=== PATIENT | male | born 1940 | race Caucasian/White ===

== ENCOUNTER 2019-01-12 16:48 | Inpatient (IN) | payer SELFPAY ==
[~2019-01-12] VITALS: Ht 177.8 cm; Wt 90.7 kg
[2019-01-12 17:49] LABS: BASOPHILS ABSOLUTE AUTO 0.05 K/mm3 (0.00-0.23); BASOPHILS PERCENT AUTO 1 % (0-2); EOSINOPHILS ABSOLUTE AUTO 0.06 K/mm3 (0.00-0.68); EOSINOPHILS PERCENT AUTO 1 % (0-6); Hematocrit 42.4 % (37.0-53.0); Hemoglobin 13.9 g/dL (13.5-17.5); IMMATURE GRAN ABSOLUTE AUTO 0.04 K/mm3 (0.00-0.10); IMMATURE GRAN PERCENT AUTO 0 % (0-1); LYMPHOCYTES ABSOLUTE AUTO 1.75 K/mm3 (0.84-5.20); LYMPHOCYTES PERCENT AUTO 19 % (21-46); MONOCYTES ABSOLUTE AUTO 0.93 K/mm3 (0.16-1.47); MONOCYTES PERCENT AUTO 10 % (4-13); Mean Corpuscular HGB 32.4 pg (26.0-34.0); Mean Corpuscular HGB Conc 32.8 g/dL (31.5-36.5); Mean Corpuscular Volume 99 fL (80-100); Mean Platelet Volume 10.8 fL (9.1-12.4); NEUTROPHILS ABSOLUTE AUTO 6.63 K/mm3 (1.96-9.15); NEUTROPHILS PERCENT AUTO 70 % (41-73); Platelet Count 224 K/mm3 (150-400); RDW Coefficient Variation 12.2 % (11.7-14.2); RDW Standard Deviation 44.2 fL (35.1-46.3); Red Blood Cell Count 4.29 M/mm3 (4.30-5.90); White Blood Cell Count 9.46 K/mm3 (4.00-11.30)
[2019-01-12 18:14] LABS: Albumin, Blood 4.2 g/dL (3.4-5.0); Albumin/Globulin Ratio 1.4 (0.8-1.8); Bilirubin, Total 0.8 mg/dL (0.1-1.0); Bun/Creatinine Ratio 19.4 (12.0-20.0); Calcium, Blood 9.2 mg/dL (8.5-10.1); Creatinine, Blood 3.35 mg/dL (0.60-1.20); Globulin, Blood 3.1 g/dL (2.2-4.0); Potassium, Blood 3.2 mmol/L (3.5-5.5); Total Protein, Blood 7.3 g/dL (6.4-8.2)
[2019-01-12] MEDS ORDERED: [UNRECOGNIZED DRUG - CODE] PO (19:39)
[2019-01-12 20:30] LABS: Magnesium, Blood 1.9 mg/dL (1.6-2.4)
[2019-01-12 20:31] LABS: Source, Urine Clean Catch
[2019-01-12 20:36] LABS: Appearance, Urine Clear (Clear); Bilirubin, Urine Neg (Neg); Blood, Urine 1+ (Neg); Color, Urine Yellow (P-Yellow); Glucose Qualitative, Urine Neg (Neg); Ketones, Urine Neg (Neg); Leukocyte Esterase, Urine 2+ (Neg); Nitrite, Urine Neg (Neg); Protein, Urine 1+ (Neg); Specific Gravity, Urine 1.025 (1.003-1.022); Urobilinogen, Urine NORM (Normal)
[2019-01-12 20:49] LABS: Amorphous Light (0-Heavy); Bacteria Few /hpf; Red Blood Cells, Urine Rare /hpf (0-2); Squamous Epithelial Cells Few /hpf (Few)
--- NOTE | 2019-01-13 04:30 | NUR ---
PT WOKE UP THIS AM, PULLED OUT IV, AND DEMANDED TO GO HOME. PT REPORTS THERE IS "MACHINERY IN THE HALLWAY, NURSES RUNNING AROUND, NOISES OUT THERE" AND THAT THE HOSPITAL IS "UP TO NO GOOD". PT IS ALERT AND ORIENTED ENOUGH TO MAKE OWN DECISIONS, AWARE OF LOCATION, DATE/TIME, REASON FOR ADMISSION, AND RISKS OF LEAVING AMA. PT STATES HE WILL CALL A TAXI AND ALREADY HAS A HOTEL RESERVED (PT HAS BEEN STAYING AT [facility] 6 D/T POWER OUTAGE). PLACED CALL TO DR PENNINGTON WHO GAVE OKAY FOR PT TO LEAVE AMA LONG HE IS AWARE OF RISKS/BENEFITS AND ABLE TO SIGN PAPERWORK. PT AWARE AND ABLE TO DO SO. PT IS STABLE AND HAS STEADY GAIT UPON EXITING THE HOSPITAL, PERSONAL BELONGINGS TAKEN WITH PT.
== END 2019-01-13 04:20 | disposition left against medical advice (07) | DRG 684 ==
LOC: ER 16:48 → MEDS 18:34
PROVIDERS: Emergency Medicine; Nurse Practitioner Acute Care; ADMIT Internal Medicine
DX: N17.9 Acute kidney failure, unspecified (principal); R55 Syncope and collapse; I10 Essential (primary) hypertension; Z66 Do not resuscitate; E87.6 Hypokalemia; E86.9 Volume depletion, unspecified; Z79.82 Long term (current) use of aspirin
CPT/HCPCS: 70450; 80053; 81001; 82550; 83735; 84100; 85025; 93005; 93010; 99285-25; J7030

== ENCOUNTER 2020-12-10 04:27 | Emergency (ER) | payer SELFPAY ==
[~2020-12-10] VITALS: Ht 175.3 cm; Wt 79.4 kg
[~2020-12-10 04:27] MED LIST: [UNRECOGNIZED DRUG - CODE] PO
[2020-12-10 04:56] LABS: BASOPHILS ABSOLUTE AUTO 0.04 K/mm3 (0.00-0.23); BASOPHILS PERCENT AUTO 1 % (0-2); EOSINOPHILS ABSOLUTE AUTO 0.11 K/mm3 (0.00-0.68); EOSINOPHILS PERCENT AUTO 1 % (0-6); Hemoglobin 13.6 g/dL (13.5-17.5); IMMATURE GRAN ABSOLUTE AUTO 0.06 K/mm3 (0.00-0.10); IMMATURE GRAN PERCENT AUTO 1 % (0-1); LYMPHOCYTES ABSOLUTE AUTO 1.04 K/mm3 (0.84-5.20); LYMPHOCYTES PERCENT AUTO 12 % (21-46); MONOCYTES ABSOLUTE AUTO 0.97 K/mm3 (0.16-1.47); MONOCYTES PERCENT AUTO 11 % (4-13); Mean Corpuscular HGB 31.9 pg (26.0-34.0); Mean Corpuscular HGB Conc 31.6 g/dL (31.5-36.5); Mean Corpuscular Volume 101 fL (80-100); NEUTROPHILS ABSOLUTE AUTO 6.45 K/mm3 (1.96-9.15); NEUTROPHILS PERCENT AUTO 74 % (41-73); Platelet Count 208 K/mm3 (150-400); RDW Coefficient Variation 13.1 % (11.7-14.2); RDW Standard Deviation 47.7 fL (35.1-46.3); Red Blood Cell Count 4.27 M/mm3 (4.30-5.90); White Blood Cell Count 8.67 K/mm3 (4.00-11.30)
[2020-12-10 05:03] LABS: Bun/Creatinine Ratio 22.7 (12.0-20.0); Calcium, Blood 9.5 mg/dL (8.5-10.1); Creatinine, Blood 1.41 mg/dL (0.60-1.20); Potassium, Blood 4.1 mmol/L (3.5-5.5)
[2020-12-10 05:10] LABS: International Normalized Ratio 1.07; Prothrombin Time Results 11.4 Sec (9.7-11.5)
[2020-12-10] MEDS ORDERED: CEPH500 PO (06:30)
== END 2020-12-10 08:15 | disposition home or self-care (01) ==
LOC: ER 04:27
PROVIDERS: Student in an Organized Health Care Education/Training Program
DX: S01.01XA Laceration without foreign body of scalp, initial encounter (principal); I10 Essential (primary) hypertension; W01.198A Fall on same level from slipping, tripping and stumbling with subsequent striking against other object, initial encounter
CPT/HCPCS: 12004; 70450; 72125; 80048; 85025; 85610; 99284-25; A9270

== ENCOUNTER 2020-12-12 14:11 | Inpatient (IN) | payer MEDICARE, SELFPAY ==
[~2020-12-12] VITALS: Ht 172.7 cm; Wt 92.8 kg
[~2020-12-12 14:11] MED LIST changes: +CEPH500 PO
[2020-12-12 14:38] LABS: BASOPHILS ABSOLUTE AUTO 0.03 K/mm3 (0.00-0.23); BASOPHILS PERCENT AUTO 0 % (0-2); EOSINOPHILS ABSOLUTE AUTO 0.03 K/mm3 (0.00-0.68); EOSINOPHILS PERCENT AUTO 0 % (0-6); Hematocrit 46.2 % (37.0-53.0); Hemoglobin 14.9 g/dL (13.5-17.5); IMMATURE GRAN ABSOLUTE AUTO 0.06 K/mm3 (0.00-0.10); IMMATURE GRAN PERCENT AUTO 1 % (0-1); LYMPHOCYTES ABSOLUTE AUTO 0.96 K/mm3 (0.84-5.20); LYMPHOCYTES PERCENT AUTO 7 % (21-46); MONOCYTES ABSOLUTE AUTO 1.33 K/mm3 (0.16-1.47); MONOCYTES PERCENT AUTO 10 % (4-13); Mean Corpuscular HGB Conc 32.3 g/dL (31.5-36.5); Mean Corpuscular Volume 99 fL (80-100); Mean Platelet Volume 9.9 fL (9.1-12.4); NEUTROPHILS ABSOLUTE AUTO 10.81 K/mm3 (1.96-9.15); NEUTROPHILS PERCENT AUTO 82 % (41-73); Platelet Count 214 K/mm3 (150-400); RDW Coefficient Variation 12.7 % (11.7-14.2); RDW Standard Deviation 46.5 fL (35.1-46.3); Red Blood Cell Count 4.65 M/mm3 (4.30-5.90); White Blood Cell Count 13.22 K/mm3 (4.00-11.30)
[2020-12-12 14:52] LABS: Alanine Aminotransfer (ALT/SGP 47 U/L (12-78); Albumin, Blood 3.6 g/dL (3.4-5.0); Albumin/Globulin Ratio 1.1 (0.8-1.8); Alk Phos 87 U/L (50-136); Anion Gap 8 mmol/L (6-16); Aspartate Aminotrans (AST/SGOT 121 U/L (12-37); Bilirubin, Total 1.1 mg/dL (0.1-1.0); Blood Urea Nitrogen 39 mg/dL (8-24); Bun/Creatinine Ratio 35.1 (12.0-20.0); CO2, Blood 24 mmol/L (21-32); Calcium, Blood 9.4 mg/dL (8.5-10.1); Chloride, Blood 109 mmol/L (98-108); Creatinine, Blood 1.11 mg/dL (0.60-1.20); Globulin, Blood 3.3 g/dL (2.2-4.0); Glomerular Filtration Rate >60 (60-); Glucose, Blood 97 mg/dL (70-99); Sodium, Blood 141 mmol/L (136-145); Total Protein, Blood 6.9 g/dL (6.4-8.2)
[2020-12-12 14:53] LABS: International Normalized Ratio 1.07; Prothrombin Time Results 11.4 Sec (9.7-11.5)
[2020-12-12 15:31] LABS: Source, Urine Catheter
[2020-12-12 15:39] LABS: Bilirubin, Urine Neg (Neg); Blood, Urine 4+ (Neg); Glucose Qualitative, Urine Neg (Neg); Ketones, Urine 3+ (Neg); Leukocyte Esterase, Urine Neg (Neg); Nitrite, Urine Neg (Neg); Protein, Urine 2+ (Neg); Urobilinogen, Urine 1+ (Normal)
[2020-12-12 15:54] LABS: U Amphetamine Screen Not Detected; U Barbituate Screen Not Detected; U Benzodiazapine Screen Not Detected; U Buprenorphine Screen Not Detected; U Cannabinoids Screen Not Detected; U Cocaine Screen Not Detected; U Methadone Screen Not Detected; U Methamphetamine Screen Not Detected; U Opiates Screen Not Detected; U Oxycodone Screen Not Detected; U Phencyclidine Screen Not Detected; U Propoxyphene Screen Not Detected
[2020-12-12 15:55] LABS: Appearance, Urine Hazy (Clear); Color, Urine Yellow (P-Yellow)
[2020-12-12 15:56] LABS: Amorphous Light (0-Heavy); Bacteria Not Seen /hpf; Mucus Mod (0-Heavy); Red Blood Cells, Urine Not Seen /hpf (0-2); Squamous Epithelial Cells Rare /hpf (Few)
[2020-12-12 16:36] LABS: Creatine Kinase MB 17.1 ng/mL (0.0-3.6); Creatine Kinase MB Index 0.7 (0.0-4.0)
[2020-12-12] MEDS ORDERED: CEPH500 PO (16:39)
--- NOTE | 2020-12-12 22:25 | NUR ---
ADMITTED 80 YR OLD MALE FROM THE ED WITH REPORTED HAVING BEEN FOUND DOWN FOR AT LEAST 2 DAYS BY FRIEND WHO HAD PT BROUGHT BACK TO HOSPITAL (HAD BEEN TREATED HERE 2 DAYS PRIOR - SEE ED REPORTS). REPORTED FROM ED PT SPEAKS CHILEAN, UNKNOWN IF HE SPOKE BURMESE. REPORTED PT HAD BEEN "HALLUCINATING" FOR SOME 2-3 WEEKS BY FRIEND IN THE ED. UPON ARRIVAL AT FLOOR. NOTE STITCHES ON FOREHEAD, SEE RESULTS OF HEAD CT - DEPRESSED LEFT FRONTAL FX. NOTE SEVERE GROIN RASH WITH DRAINAGE. NELSON DRAINING, BAG CHANGED OUT IT WAS LEAKING FROM THE BOTTOM. NS INFUSING AT 75 ML/HR. SPOKE TO PT, SPEAKS BURMESE, SLOWLY. ALERT AND ORIENTED. INCONT OF BM-SMEAR. CLEANED UP, BREANN CARE GIVEN. ORIENTED TO USE OF CALL LIGHT. NEURO CHECK - PUPILS DIFFERENT SIZE VUT BOTH ARE ROUND. [place] SLOW BUT EQUAL. DORSI AND PLANTAR FLEXIONS SLOW BUT SEEM EQUAL AT THIS TIME. CALL LIGHT IN REACH
--- NOTE | 2020-12-12 23:29 | NUR ---
[facility]CO PRO AND SARAH PRO (POA OF PT) CALLED FOR UPDATS RE PT. REQUESTED THAT MD CALL THEM WITH PLAN OF ACTION IN THE AM. VOICED PT HAD BEEN TALKING TO UNSEEN PEOPLE ON HIS COUCH AND OTHER THINGS THAT SEEMED LIKE HALLUCINATIONS OVER THE PAST 6 MONTHS OR SO. THEY SAID THEY SPOKE WITH THE ED RN WHO MENTIONED POSSIBLE UTI, NO NOTED (+) BACTERIA IN UA BUT WILL CONTINUE TO MONITOR. IVF OF NS INFUSING. BED ALARM ON DUE TO RECENT FALLS AT HOME. ANNELIESE PH # ON INFO BOARD IN ROOM. REQUEST THAT THEY BE CALLED FOR ANY CHANGES, THEY SAID THEY WERE UPSET THAT THEY WERENT NOTIFIED OF RECENT DISCHARGE OF PT AND FOUND HIM DOWN AT HIS HOME. WILL PASS THIS ON TO AM RN AND HAVE THEM ASK THE MD TO CALL POST ASSESSMENT. CALL LIGHT IN REACH
--- NOTE | 2020-12-13 03:15 | NUR ---
GOT OUT OF BED. ALARM WENT OFF. STATED "I HAVE TO GO TO THE BATHROOM" (BM, NELSON INTACT AND DRAINING). ASSISTED TO BEDSIDE COMMODE. PT TRIED TO PULL OUT IV, WHICH WAS REATTACHED. AFTER BM, ASSISTED BACK TO BED. NOTE ALL 4 EXTREMITITES WORKING, VERBAL RESPONSE APPROPRIATE TO QUESTIONS ASKED. CALL LIGHT IN REACH
--- NOTE | 2020-12-13 03:19 | NUR ---
SHIFT SUMMARY ADMITTED EARLIER IN SHIFT. WAS FOUND DOWN AT HOME, BROUGHT TO HOSPITAL, NEURO CHECKS DONE - PUPILS ROUND BUT ONE SLIGHTLY LARGER THAN THE OTHER - SEE DOCUMENTATION. GOT OUT OF BED A FEW MINUTES AGO AND ALL 4 EXT WORKING, BUT VERY UNSTEADY ON FEET. ASSISTED TO AND FROM COMMODE. RESTING QUIETLY AT THIS TIME IN BED. CALL LIGHT IN REACH. IVF OF NS INFUSING. RAILS UP X 2, BED ALARM ON
[2020-12-13 04:41] LABS: BASOPHILS ABSOLUTE AUTO 0.03 K/mm3 (0.00-0.23); BASOPHILS PERCENT AUTO 0 % (0-2); EOSINOPHILS ABSOLUTE AUTO 0.06 K/mm3 (0.00-0.68); EOSINOPHILS PERCENT AUTO 1 % (0-6); Hematocrit 40.1 % (37.0-53.0); Hemoglobin 12.9 g/dL (13.5-17.5); IMMATURE GRAN ABSOLUTE AUTO 0.05 K/mm3 (0.00-0.10); IMMATURE GRAN PERCENT AUTO 1 % (0-1); LYMPHOCYTES ABSOLUTE AUTO 0.69 K/mm3 (0.84-5.20); LYMPHOCYTES PERCENT AUTO 7 % (21-46); MONOCYTES ABSOLUTE AUTO 1.12 K/mm3 (0.16-1.47); MONOCYTES PERCENT AUTO 12 % (4-13); Mean Corpuscular HGB 32.4 pg (26.0-34.0); Mean Corpuscular HGB Conc 32.2 g/dL (31.5-36.5); Mean Corpuscular Volume 101 fL (80-100); Mean Platelet Volume 9.9 fL (9.1-12.4); NEUTROPHILS PERCENT AUTO 80 % (41-73); Platelet Count 194 K/mm3 (150-400); RDW Coefficient Variation 12.8 % (11.7-14.2); RDW Standard Deviation 47.2 fL (35.1-46.3); Red Blood Cell Count 3.98 M/mm3 (4.30-5.90); White Blood Cell Count 9.65 K/mm3 (4.00-11.30)
[2020-12-13 05:15] LABS: Anion Gap 7 mmol/L (6-16); Blood Urea Nitrogen 38 mg/dL (8-24); Bun/Creatinine Ratio 33.6 (12.0-20.0); CO2, Blood 24 mmol/L (21-32); Calcium, Blood 8.7 mg/dL (8.5-10.1); Chloride, Blood 113 mmol/L (98-108); Creatinine, Blood 1.13 mg/dL (0.60-1.20); Glomerular Filtration Rate >60 (60-); Glucose, Blood 98 mg/dL (70-99); Potassium, Blood 3.6 mmol/L (3.5-5.5); Sodium, Blood 144 mmol/L (136-145)
[2020-12-13 05:21] LABS: CPK Creatine Kinase 1412 U/L (39-308)
--- NOTE | 2020-12-13 18:27 | NUR ---
Shift Summary A/O to self. At start of shift, patient was sleeping. Joel present, draining to gravity with frantz clear urine. Received V.O. from Dr. Carter to d/c wisam. Order updated and joel remove at approximately 1830. Physical therapy evaluated patient, reported patient extremely unsteady on feet. Stitches to forehead intact without signs of infection. 2p TQ2. POA (Henry) visited and reports patient has been having visual and auditory hallucinations for approx. 6 months now. No hallucinations today. Otherwise, pleasant and cooperative with care. Able to follow some instructions. Verbal responses to questions asked are sometimes inappropriate. No other changes. Bed in lowest position. Call light near, bed alarm on. Continuous NS @ 100. WCTM
--- NOTE | 2020-12-13 19:16 | NUR ---
AWAKENS WHEN NURSE ENTERS ROOM FOR ROUNDING. IVF OF NS INFUSING AT 100 ML/HR PER MD ORDERS. INSTRUCTED TO USE CALL LIGHT INSTEAD OF ATTEMPTING TO GET OUT OF BED BY SSELF. CALL LIGHT IN REACH. PT AGREES TO DO SO. HOB ELEVATED FOR COMFORT. NO NOTED ACUTE DISTRESS AT THIS TIME.
--- NOTE | 2020-12-14 02:59 | NUR ---
SHIFT SUMMARY HAS BEEN RESTING QUIETLY WITH EFW INTERRUPTIONS SINCE HS. IVF OF NS CONTINUES TO INFUSE AT 100 ML/HR PER MD ORDERS. CHANGED FOR INCONT OF URINE EARLIER. ABLE TO REPOSITION SELF. HOB ELEVATED FOR COMFORT. CALL LIGHT IN REACH. OINTMENT WAS APPLIED TO GROIN RASH EARLIER, REMAINS RED. RAILS UP X 2. NO NOTED ATTEMPTS TO GET OUT OF BED WITHOUT STAFF PRESENT. WILL CONT TO MONITOR, BED ALARM REMAINS ON
--- NOTE | 2020-12-14 14:30 | NUR ---
permission to provide care student nurse lorenzo mcnally recieved permission to provide care on 12/14/20
--- NOTE | 2020-12-14 20:41 | NUR ---
AWAKENS AT ROUNDING. HOB REMAINS ELEVATED FOR BREATHING COMFORT. NO C/O PAIN. VERBAL RESPONSE SLOW, MIXED WITH [facility]. PT SMILES. CALL LIGHT IN REACH
--- NOTE | 2020-12-15 03:24 | NUR ---
SHIFT SUMMARY AWAKE AT INTERVALS TO CALL FOR ASSIST TO AMBULATE TO BATHROOM TO VOID WITH THE HELP OF A WALKER. INCONT OF URINE X 1, OTHERWISE VOIDED IN THE TOILET. USING CALL LIGHT APPROPRIATELY. SMILING WHEN TALKING TO STAFF, VERBALIZATIONS CONTINUE TO BE SOMEWHAT GARBLED, BUT SEEMS LESS CONFUSED IN HIS ACTIONS THAN NOTED 24 HR AGO. CALL LIGHT IN REACH. HOB REMAINS ELEVATED FOR COMFORT.
--- NOTE | 2020-12-15 18:57 | NUR ---
PT TRANSFERED VIA W/C FROM 302 TO SCU RM 344, REPORT TO NEW GRAD FROM PREVIOUS RN PRIOR TO TRANSFER. PT AGITATED AND NOT FOLLOWING DIRECTIONS, WOULD NOT SIT DOWN IN BED. PT ASSISTED TO BED BY 4 STAFF, WENDI VEST PLACED. DR. GROVE NOTIFIED AND RECIEVED ORDER FOR WENDI VEST AND ATIVAN 0.5-1MG IV Q4 PRN.
--- NOTE | 2020-12-15 19:00 | NUR ---
ASSUMED CARE RECEIVED REPORT FROM PIOTR CERVANTES. PT RESTING IN BED COMFORTABLY, NO S/S ACUTE DISTRESS NOTED, RESPS E/U. NO ACUTE NEEDS ASSESSED AT THIS TIME. CALL LIGHT, POSSESSIONS IN REACH, BED IN LOW POSITION WITH ALARMS ON. WENDI VEST IN PLACE. CONTINUE TO MONITOR.
--- NOTE | 2020-12-16 06:10 | NUR ---
SHIFT SUMMARY PT ASLEEP, IN NO ACUTE DISTRESS. PT ANXIOUS EARLY IN EVENING, MEDICATED PER EMAR, PT APPEARED TO SLEEP T/O NIGHT. NO ACUTE CHANGES IN CONDITION NOTED T/O SHIFT. VS REVIEWED, PT HYPERTENSIVE, MEDICATED PER EMAR WITH EFFECTIVE RESULTS; BP NOW STABLE; OTHER VS WNL. WENDI VEST AND SIDERAILS X4 REMAIN IN PLACE D/T HIGH RISK FOR FALLS. NO ACUTE NEEDS ASSESSED AT THIS TIME, PT APPEARS COMFORTABLE. CALL LIGHT, POSSESSIONS IN REACH, BED IN LOW POSITION WITH ALARMS ON. CONTINUE TO MONITOR, REPORT OFF TO DAY RN.
--- NOTE | 2020-12-16 16:19 | NUR ---
Student Nurse was given permission by RN to assist with Pt. care.
--- NOTE | 2020-12-16 17:02 | NUR ---
PATIENT A/O TO SELF AND FAMILY ONLY. ABLE TO MAKE NEEDS KNOWN AND USED CALL LIGHT APPROPRIATELY FOR ASSISTANCE TODAY. RESTRAINTS D/C'D AT 1000 THIS AM. VSS, ON RA. AMBULATED IN ROOM AND HALLS TODAY WITH FWW AND SBA. TYLENOL GIVEN X1 FOR SHOULDER PAIN. SUTURES TO FOREHEAD, LACERATION DRY AND OPEN TO AIR. AWAITING PLACEMENT.
--- NOTE | 2020-12-17 04:29 | NUR ---
SHIFT SUMMARY PT HAD AN UNEVENTFUL NIGHT. SLEPT THROUGH MUCH OF THE NIGHT. PLEASANTLY CONFUSED. CONTINUES TO BE IMPULSIVE. HAS NOT USED CALL LIGHT APPROPRIATELY THIS EVENING. BED ALARM ON FOR SAFETY. PT MOSTLY INCONTINENT, GETTING UP TO VOID BUT HAVING ALREADY GONE IN BRIEF. SKIN IN BREANN AREA IS RED AND EXCORIATED. BARRIER CREAM APPLIED TO BREANN AREA AND NYSTATIN CREAM TO PANNUS. LACERATION WITH SUTURES TO FOREHEAD NOTED WITH BRUISING TO FACE FROM FALL AT HOME. PT HAS [place]EN[place] ACCENT, DIFFICULT TO UNDERSTAND AT TIMES. UNCLEAR ALSO HOW MUCH PT IS UNDERSTANDING WHEN SPEAKING TO HIM. PT REMAINED OUT OF RESTRAINTS THROUGHOUT THE NIGHT. NO COMPLAINTS OF PAIN. VITAL SIGNS STABLE. NO ACUTE CHANGES. WILL CONTINUE TO MONITOR.
--- NOTE | 2020-12-17 17:03 | NUR ---
DNR BAND PLACED TO L WRIST. ORDER VERIFIED BY PIOTR RAMOS
--- NOTE | 2020-12-17 18:01 | NUR ---
PATIENT A/O TO SELF AND FAMILY THIS SHIFT. VERY PLEASANT AND COOPERATIVE WITH CARE. UP WITH FWW AND SBA, FALL PRECAUTIONS IN PLACE. SUTURES INTACT TO FOREHEAD AND WOUND IS OPEN TO AIR. TOLERATING CARDIAC DIET, ABLE TO FEED HIMSLEF. CONTINENT/INCONTINENT OF URINE. NO IV SITE. POA MARCO HERE TODAY AND A POLST FORM WAS COMPLETED. CODE STATUS CHANGED TO DNR. MARCO WILL BE BY IN THE MORNING TO SALES LEAD GENERATOR SIGNED POLST FORM TO GIVE TO THE [facility] PATIENT WILL D/C SOON MONDAY. BENADRYL ORDERED DUE TO RASH ON HIS BACK, BUT PATIENT DID NOT WANT TO TAKE ANY TODAY. NO NEW CONCERNS.
--- NOTE | 2020-12-18 04:28 | NUR ---
SHIFT SUMMARY PT REMAINS PLEASANTLY CONFUSED. PT WILL USE CALL LIGHT SOMETIMES AND OTHER TIMES WILL NOT. BED ALARM ON FOR SAFETY. PT INCONTINENT/CONTINENT. GETS UP TO VOID BUT HAS USUALLY ALREADY GONE IN HIS BRIEF. THICK [place] ACCENT MAKES IT DIFFICULT TO UNDERSTAND PT AT TIMES. LACERATION W/ SUTURES TO FOREHEAD OPEN TO AIR. SMALL ABRASIONS SCATTERED THROUGHOUT BODY. BRUISING TO FACE. PT HAD FALL AT HOME. VITAL SIGNS STABLE. NO ACUTE CHANGES THIS EVENING. WILL CONTINUE TO MONITOR.
--- NOTE | 2020-12-18 17:29 | NUR ---
SHIFT SUMMARY PATIENT DENIES PAIN, NAUSEA, AND SHORTNESS OF BREATH. PATIENT UP SBA TO BATHROOM. SOMETIMES CALLS AND SOMETIMES SET OFF CHAIR ALARM. PLEASANT AND COOPERATIVE WITH CARE. EATING AND DRINKING WELL. PENDING DISCHARGE TO THE [facility].
--- NOTE | 2020-12-19 04:07 | NUR ---
SHIFT SUMMARY NO ACUTE CHANGES THIS SHIFT. PT IS CONFUSED BUT PLEASANT, GETS OUT OF BED WHEN NEEDING TO USE RESTROOM WITHOUT CALLING, BUT IS REDIRECTABLE. PT IS AUGUSTINE AND HAS THICK DIVEHI ACCENT. PT HAS COMPLAINED OF WRIST PAIN THIS SHIFT, WHEN THIS RN GETS PAIN MEDICATION FOR PT, PT IS SLEEPING WITH SNORING HEARD BY THE TIME THIS RN IS BACK IN PT ROOM. PT IS LAYING IN BED WITH EYES CLOSED, EVEN AND UNLABORED RESPIRATIONS. BED IN LOWERED POSITION WITH ALARM IN PLACE. CALL LIGHT AND PERSONAL ITEMS WITH IN REACH. NO APPARENT NEEDS OR DISTRESS AT THIS TIME, WILL CONTINUE TO MONITOR UNTIL REPORT GIVEN TO DAY RN.
--- NOTE | 2020-12-19 16:45 | NUR ---
NO ACUTE CHANGES TO PT. HE HAS RESTED OR BEEN UP IN CHAIR THIS SHIFT WITH NO COMPLAINTS OR ISSUES. HE IS CONFUSED BUT REDIRECTABLE AND FRIENDLY WITH STAFF. CALL LIGHT WITHIN REACH AND CHAIR ALARM ON.
--- NOTE | 2020-12-20 04:07 | NUR ---
SHIFT SUMMARY NO ACUTE CHANGES THIS SHIFT. PT SLEPT WELL T/O NIGHT WITH ONLY A FEW INSTANCES WHERE PT TRIED GETTING OUT OF BED TO USE RESTROOM WITHOUT CALLING FOR HELP FIRST. OTHERWISE NO OTHER COMPLAINTS/PROBLEMS. PT IS LAYING IN BED WITH EYES CLOSED, EVEN AND UNLABORED RESPIRATIONS. BED IN LOWERED POSITION WITH ALARM IN PLACE. CALL LIGHT AND PERSONAL ITEMS WITH IN REACH. NO APPARENT NEEDS OR DISTRESS AT THIS TIME, WILL CONTINUE TO MONITOR UNTIL REPORT GIVEN TO DAY RN.
--- NOTE | 2020-12-20 15:53 | NUR ---
PT REQUESTED TO WALK OUT OF ROOM. WITH USE OF GAIT BELT AND WALKER PT WAS ABLE TO WALK ONE ASSIST DOWN TO WINDOW AND BACK . PT REMAINS CONFUSED BUT IS REDIRECTABLE. HE IS PLEASANT AND COOPERATIVE WITH CARES. NO ACUTE CHANGES TO PT . CALL LIGHT WITHIN REACH.
--- NOTE | 2020-12-21 04:34 | NUR ---
SHIFT SUMMARY ALERT, ABLE TO MAKE NEEDS KNOWN. FOLLOWING DIRECTIONS. COOPERATIVE WITH CARE. NO C/O PAIN/DISCOMFORT. APPEARED TO REST MUCH OF THE NIGHT. 1P ASSIST TO BATHROOM. NO ACUTE CHANGES NOTED OVERNIGHT. AWAITING PLACEMENT. BED IN LOWEST POSITION; ALARM ON. CONTINUE WITH CURRENT PLAN OF CARE. REPORT TO ONCOMING RN.
[2020-12-21] MEDS ORDERED: Prinivil10 MG PO (15:47)
[2020-12-21] MEDS ORDERED: AMLO10 PO (15:47)
[2020-12-21] MEDS ORDERED: VITAMIN D5000 UNIT PO (15:48)
--- NOTE | 2020-12-21 16:13 | NUR ---
PT DISCHARGED FROM THE UNIT. RIDE TO TAKE TO THE [facility]. LEFT UNIT VIA WHEELCHAIR.
== END 2020-12-21 15:53 | disposition home or self-care (01) | DRG 557 ==
LOC: ER 14:11 → MEDS 14:12 → ERHOLD 14:12 → MEDS 20:57
PROVIDERS: Emergency Medicine; ADMIT Family Medicine
DX: M62.82 Rhabdomyolysis (principal); G92 Toxic encephalopathy; F03.90 Unspecified dementia, unspecified severity, without behavioral disturbance, psychotic disturbance, mood disturbance, and anxiety; I10 Essential (primary) hypertension; S00.03XA Contusion of scalp, initial encounter; W19.XXXA Unspecified fall, initial encounter; Z20.822 Contact with and (suspected) exposure to COVID-19; Z66 Do not resuscitate; S00.11XA Contusion of right eyelid and periocular area, initial encounter; Z85.038 Personal history of other malignant neoplasm of large intestine; L27.0 Generalized skin eruption due to drugs and medicaments taken internally; T50.2X5A Adverse effect of carbonic-anhydrase inhibitors, benzothiadiazides and other diuretics, initial encounter
CPT/HCPCS: 36415; 70450; 71045; 72125; 80048; 80053; 81001; 82140; 82550; 82553; 85025; 85610; 85730; 93005; 93010; 96360; 96361; 96374; 97110; 97116; 97129; 97130; 97162; 97166; 97530; 97535; 99285-25; A9270; G0378; G0480; J0360; J2060; J7030

== ENCOUNTER → 2021-01-26 | Outpatient (CLI) | payer SELFPAY ==
[~2021-01-26] MED LIST changes: +AMLO10 PO; +Prinivil10 MG PO; +VITAMIN D5000 UNIT PO
[2021-01-26 12:30] LABS: Source, Urine Clean Catch
[2021-01-26 13:24] LABS: Appearance, Urine Hazy (Clear); Bilirubin, Urine Neg (Neg); Blood, Urine 2+ (Neg); Color, Urine Yellow (P-Yellow); Glucose Qualitative, Urine Neg (Neg); Ketones, Urine Neg (Neg); Leukocyte Esterase, Urine 3+ (Neg); Nitrite, Urine Neg (Neg); Protein, Urine Neg (Neg); Urobilinogen, Urine NORM (Normal); pH, Urine 6.5 (5.0-8.0)
[2021-01-26 13:41] LABS: Bacteria Many /hpf; Squamous Epithelial Cells Few /hpf (Few); White Blood Cells, Urine TNTC /hpf (0-5)
== END ==
LOC: PLD 10:00 → LAB SHORT 10:00
PROVIDERS: Nurse Practitioner Family
DX: F03.90 Unspecified dementia, unspecified severity, without behavioral disturbance, psychotic disturbance, mood disturbance, and anxiety (principal)
CPT/HCPCS: 81001; 87077; 87086; 87186

== ENCOUNTER → 2021-09-10 | Outpatient (CLI) | payer SELFPAY ==
[2021-09-10 15:58] LABS: Appearance, Urine Cloudy (Clear); Bilirubin, Urine Neg (Neg); Blood, Urine 4+ (Neg); Color, Urine Yellow (P-Yellow); Glucose Qualitative, Urine Neg (Neg); Ketones, Urine Neg (Neg); Leukocyte Esterase, Urine 3+ (Neg); Nitrite, Urine Neg (Neg); Protein, Urine 4+ (Neg); Urobilinogen, Urine NORM (Normal)
[2021-09-10 16:18] LABS: Bacteria Many /hpf; Squamous Epithelial Cells Rare /hpf (Few); Transitional Epithelial Cells Rare /hpf (0-Rare); White Blood Cells, Urine TNTC /hpf (0-5)
== END ==
LOC: LAB SHORT 12:45
PROVIDERS: Nurse Practitioner Family
DX: N39.0 Urinary tract infection, site not specified (principal)
CPT/HCPCS: 81001; 87086

== ENCOUNTER → 2021-10-25 | Outpatient (CLI) | payer OTHER ==
[2021-10-26 13:57] LABS: Source, Urine Clean Catch
[2021-10-26 15:42] LABS: Appearance, Urine Clear (Clear); Bilirubin, Urine Neg (Neg); Blood, Urine 1+ (Neg); Color, Urine Yellow (P-Yellow); Glucose Qualitative, Urine Neg (Neg); Ketones, Urine Neg (Neg); Leukocyte Esterase, Urine 2+ (Neg); Nitrite, Urine Neg (Neg); Protein, Urine 1+ (Neg); Urobilinogen, Urine NORM (Normal)
[2021-10-26 15:52] LABS: Bacteria Mod /hpf; Red Blood Cells, Urine 0-2 /hpf (0-2); Squamous Epithelial Cells Few /hpf (Few)
== END | disposition home or self-care (01) ==
LOC: LAB SHORT 20:00
PROVIDERS: Nurse Practitioner Family
DX: N39.0 Urinary tract infection, site not specified (principal)
CPT/HCPCS: 81001; 87086

== ENCOUNTER → 2021-10-29 | Outpatient (CLI) | payer OTHER ==
[2021-10-30 15:19] LABS: Source, Urine Clean Catch
[2021-10-30 15:33] LABS: Appearance, Urine Clear (Clear); Bilirubin, Urine Neg (Neg); Blood, Urine 1+ (Neg); Color, Urine Yellow (P-Yellow); Glucose Qualitative, Urine Neg (Neg); Ketones, Urine Neg (Neg); Leukocyte Esterase, Urine Neg (Neg); Nitrite, Urine Neg (Neg); Protein, Urine 1+ (Neg); Urobilinogen, Urine NORM (Normal)
[2021-10-30 16:01] LABS: Amorphous Light (0-Heavy); Bacteria Rare /hpf; Squamous Epithelial Cells Rare /hpf (Few); White Blood Cells, Urine 0-2 /hpf (0-5)
== END | disposition home or self-care (01) ==
LOC: LAB SHORT 15:18 → LAB 15:18
PROVIDERS: Nurse Practitioner Family
DX: N39.0 Urinary tract infection, site not specified (principal)
CPT/HCPCS: 81001

== ENCOUNTER 2021-11-23 13:18 | Emergency (ER) | payer OTHER ==
[~2021-11-23] VITALS: Ht 177.8 cm; Wt 90.7 kg
[2021-11-23 14:51] LABS: BASOPHILS ABSOLUTE AUTO 0.04 K/mm3 (0.00-0.23); BASOPHILS PERCENT AUTO 1 % (0-2); EOSINOPHILS ABSOLUTE AUTO 0.18 K/mm3 (0.00-0.68); EOSINOPHILS PERCENT AUTO 2 % (0-6); Hematocrit 36.8 % (37.0-53.0); Hemoglobin 12.4 g/dL (13.5-17.5); IMMATURE GRAN ABSOLUTE AUTO 0.05 K/mm3 (0.00-0.10); IMMATURE GRAN PERCENT AUTO 1 % (0-1); LYMPHOCYTES ABSOLUTE AUTO 0.99 K/mm3 (0.84-5.20); LYMPHOCYTES PERCENT AUTO 12 % (21-46); MONOCYTES ABSOLUTE AUTO 0.87 K/mm3 (0.16-1.47); MONOCYTES PERCENT AUTO 11 % (4-13); Mean Corpuscular HGB 31.3 pg (26.0-34.0); Mean Corpuscular HGB Conc 33.7 g/dL (31.5-36.5); Mean Corpuscular Volume 93 fL (80-100); Mean Platelet Volume 10.1 fL (9.1-12.4); NEUTROPHILS ABSOLUTE AUTO 5.96 K/mm3 (1.96-9.15); NEUTROPHILS PERCENT AUTO 74 % (41-73); Platelet Count 199 K/mm3 (150-400); RDW Coefficient Variation 12.1 % (11.7-14.2); RDW Standard Deviation 41.8 fL (35.1-46.3); Red Blood Cell Count 3.96 M/mm3 (4.30-5.90); White Blood Cell Count 8.09 K/mm3 (4.00-11.30)
[2021-11-23 15:10] LABS: Albumin, Blood 3.6 g/dL (3.4-5.0); Albumin/Globulin Ratio 1.2 (0.8-1.8); Bilirubin, Total 0.4 mg/dL (0.1-1.0); Bun/Creatinine Ratio 22.9 (12.0-20.0); Calcium, Blood 8.9 mg/dL (8.5-10.1); Creatinine, Blood 1.44 mg/dL (0.60-1.20); Globulin, Blood 3.1 g/dL (2.2-4.0); Total Protein, Blood 6.7 g/dL (6.4-8.2)
[2021-11-23 15:50] LABS: Source, Urine Clean Catch
[2021-11-23 15:54] LABS: Appearance, Urine Hazy (Clear); Bilirubin, Urine Neg (Neg); Blood, Urine 2+ (Neg); Color, Urine Yellow (P-Yellow); Glucose Qualitative, Urine Neg (Neg); Ketones, Urine Neg (Neg); Leukocyte Esterase, Urine 2+ (Neg); Nitrite, Urine Neg (Neg); Protein, Urine 2+ (Neg); Specific Gravity, Urine 1.015 (1.003-1.022); Urobilinogen, Urine NORM (Normal)
[2021-11-23 16:16] LABS: Hyaline Casts 0-2 /lpf (0-2)
[2021-11-23 16:17] LABS: Bacteria Many /hpf; Red Blood Cells, Urine 0-2 /hpf (0-2); Squamous Epithelial Cells Mod /hpf (Few)
== END 2021-11-23 19:19 | disposition home or self-care (01) ==
LOC: ER 13:18
PROVIDERS: Student in an Organized Health Care Education/Training Program
DX: S00.01XA Abrasion of scalp, initial encounter (principal); F03.90 Unspecified dementia, unspecified severity, without behavioral disturbance, psychotic disturbance, mood disturbance, and anxiety; I10 Essential (primary) hypertension; Z79.899 Other long term (current) drug therapy; W19.XXXA Unspecified fall, initial encounter
CPT/HCPCS: 70450; 72125; 80053; 81001; 85025; 87086; 93005; 93010; 99285-25

== ENCOUNTER 2022-07-17 04:16 | Emergency (ER) | payer SELFPAY ==
[~2022-07-17] VITALS: Ht 172.7 cm; Wt 90.7 kg
== END 2022-07-17 05:13 | disposition home or self-care (01) ==
LOC: ER 04:16
DX: S00.81XA Abrasion of other part of head, initial encounter (principal); W18.30XA Fall on same level, unspecified, initial encounter; I10 Essential (primary) hypertension; F03.90 Unspecified dementia, unspecified severity, without behavioral disturbance, psychotic disturbance, mood disturbance, and anxiety; Z79.899 Other long term (current) drug therapy
CPT/HCPCS: 99283

== ENCOUNTER → 2022-07-18 | Outpatient (CLI) | payer SELFPAY ==
[2022-07-19 10:52] LABS: Source, Urine Voided
[2022-07-19 12:12] LABS: Appearance, Urine Clear (Clear); Bilirubin, Urine Neg (Neg); Blood, Urine 1+ (Neg); Color, Urine Yellow (P-Yellow); Glucose Qualitative, Urine Neg (Neg); Ketones, Urine Neg (Neg); Leukocyte Esterase, Urine Neg (Neg); Nitrite, Urine Neg (Neg); Protein, Urine 1+ (Neg); Urobilinogen, Urine NORM (Normal); pH, Urine 6.5 (5.0-8.0)
[2022-07-19 12:45] LABS: Red Blood Cells, Urine 0-2 /hpf (0-2); White Blood Cells, Urine 0-2 /hpf (0-5)
[2022-07-19 12:46] LABS: Bacteria Few /hpf; Hyaline Casts 0-2 /lpf (0-2); Squamous Epithelial Cells Few /hpf (Few)
== END | disposition home or self-care (01) ==
LOC: LAB SHORT 12:31
PROVIDERS: Nurse Practitioner Family
DX: N39.0 Urinary tract infection, site not specified (principal)
CPT/HCPCS: 81001

== ENCOUNTER 2022-11-09 10:16 | Emergency (ER) | payer SELFPAY ==
[~2022-11-09] VITALS: Ht 170.2 cm; Wt 79.4 kg
== END 2022-11-09 11:53 | disposition home or self-care (01) ==
LOC: ER 10:16
DX: F03.90 Unspecified dementia, unspecified severity, without behavioral disturbance, psychotic disturbance, mood disturbance, and anxiety (principal); Z79.899 Other long term (current) drug therapy; I10 Essential (primary) hypertension
CPT/HCPCS: 99284

== ENCOUNTER 2023-04-10 21:34 | Emergency (ER) | payer MEDICARE ==
[~2023-04-10] VITALS: Ht 165.1 cm; Wt 83.9 kg
[2023-04-10 22:30] VITALS: BP 118/70
== END 2023-04-10 22:44 | disposition home or self-care (01) ==
LOC: ER 21:34
DX: Z04.3 Encounter for examination and observation following other accident (principal)
CPT/HCPCS: 99283

== ENCOUNTER → 2023-10-03 | Outpatient (CLI) | payer MEDICARE ==
[2023-10-03 15:02] LABS: Appearance, Urine Cloudy (Clear); Bilirubin, Urine Neg (Neg); Blood, Urine 3+ (Neg); Color, Urine Yellow (P-Yellow); Glucose Qualitative, Urine Neg (Neg); Ketones, Urine Neg (Neg); Leukocyte Esterase, Urine 3+ (Neg); Nitrite, Urine Neg (Neg); Protein, Urine 3+ (Neg); Urobilinogen, Urine NORM (Normal)
[2023-10-03 15:32] LABS: Bacteria Many /hpf; Squamous Epithelial Cells Not Seen /hpf (Few); White Blood Cells, Urine TNTC /hpf (0-5)
== END ==
LOC: LAB 11:41 → LAB SHORT 11:41
PROVIDERS: Nurse Practitioner Family
DX: N39.0 Urinary tract infection, site not specified (principal)
CPT/HCPCS: 81001; 87086